=== PATIENT | male | born 1965 | race Caucasian/White ===

== ENCOUNTER 2020-02-03 14:13 | Emergency (ER) | payer BC, OTHER ==
[~2020-02-03] VITALS: Ht 188 cm; Wt 103.1 kg
--- NOTE | 2020-02-03 14:41 | NUR ---
BREAK RN: THIS IS A 54 YO M SENT FROM [place]/ C/O INTERMITTENT LT SIDED CP DESCRIBED A "ZINGER" X3-4 DAYS, WELL DULL ABD PAIN. PT REPORTS LAST BM 01/30/20. PT REPORTS MEDICAL HX PTSD, APPY AND ROTATOR CUFF SX. PT REPORTS HAS BEEN OFF XANAX X6 MONTHS. PT RESTING ON Zenefits W/ CALL LIGHT IN REACH AND SIDE RAILS UPX2, FAMILY AT BEDSIDE. SHANTA ORTIZ. TRACE RAMOS AT BEDSIDE FOR ED EVAL.
--- NOTE | 2020-02-03 14:43 | NUR ---
CXR AND ABD XR DONE AT [facility].
[2020-02-03 15:11] LABS: BASOPHILS % (AUTO) 1 % (0-1); EOSINOPHILS % (AUTO) 0 % (1-7); LYMPHOCYTES % (AUTO) 20 % (22-44); MEAN CORPUSCULAR HEMOGLOBIN 30.5 pg (27.5-34.5); MEAN CORPUSCULAR HGB CONC 34.3 g/dL (33.2-36.2); MEAN PLATELET VOLUME 7.9 fL (7.4-10.4); MONOCYTES % (AUTO) 8 % (2-9); NEUTROPHILS % (AUTO) 72 % (42-75); PLATELET COUNT 281 x10^3/uL (130-400); RED BLOOD COUNT 5.42 x10^6/uL (4.38-5.82); RED CELL DISTRIBUTION WIDTH 12.2 % (9.4-14.8)
[2020-02-03 15:16] LABS: MD NO
[2020-02-03 15:21] LABS: ALANINE AMINOTRANSFERASE 35 U/L (12-78); ALBUMIN 4.5 g/dL (3.4-5.0); ANION GAP 6 mmol/L (5-15); CALCIUM 9.4 mg/dL (8.5-10.1); CHLORIDE 105 mmol/L (98-107); CREATININE 1.12 mg/dL (0.7-1.3)
[2020-02-03 15:24] LABS: ALKALINE PHOSPHATASE 67 U/L (45-117); BILIRUBIN,TOTAL 0.9 mg/dL (0.2-1.0); TOTAL PROTEIN 7.7 g/dL (6.4-8.2); TROPONIN I < 0.015 ng/mL (0.000-0.045)
[2020-02-03 16:21] VITALS: BP 137/87
== END 2020-02-03 16:23 | disposition home or self-care (01) ==
LOC: ED 16:00
DX: S39.012A Strain of muscle, fascia and tendon of lower back, initial encounter (principal); K59.00 Constipation, unspecified; R07.89 Other chest pain; I45.10 Unspecified right bundle-branch block; I44.4 Left anterior fascicular block; I51.7 Cardiomegaly; X58.XXXA Exposure to other specified factors, initial encounter; Y93.89 Activity, other specified; Y92.89 Other specified places as the place of occurrence of the external cause; Y99.8 Other external cause status
CPT/HCPCS: 36415; 80053; 84484; 85025; 93005; 99284

== ENCOUNTER 2020-05-05 10:20 | Outpatient (CLI) | payer BC ==
[2020-05-05] MEDS ORDERED: SINCALIDE (KINEVAC) 5 MCG ONE (11:17)
[2020-05-05] MEDS ORDERED: SINCALIDE IV ONE (12:00)
[2020-05-05] MEDS ORDERED: STERILE WATER IV ONE (12:00)
== END 2020-05-05 23:59 | disposition home or self-care (01) ==
LOC: RAD 10:20
PROVIDERS: ATTEND Family Medicine
DX: K82.9 Disease of gallbladder, unspecified (principal)
CPT/HCPCS: 78227; A9537; J2805

== ENCOUNTER 2020-05-18 15:54 | Outpatient (CLI) | payer BC | END 2020-05-18 23:59 | disposition home or self-care (01) | LOC: CVU 15:54 | PROVIDERS: ATTEND Internal Medicine Cardiovascular Disease | DX: R07.89 Other chest pain (principal) | CPT/HCPCS: 93306 ==

== ENCOUNTER → 2020-05-29 | Outpatient (CLI) | payer BC ==
[~2020-05-29] MED LIST: OMNIPAQUE 350 MG/ML, 100ML BOTTLE ONE
== END | disposition home or self-care (01) ==
LOC: CFH 12:30
PROVIDERS: ATTEND Surgery
DX: R10.10 Upper abdominal pain, unspecified (principal)
CPT/HCPCS: 74177; Q9967

== ENCOUNTER → 2020-06-20 | Outpatient (CLI) | payer BC, OTHER ==
[2020-06-20 11:26] LABS: BASOPHILS % (AUTO) 1 % (0-1); EOSINOPHILS % (AUTO) 0 % (1-7); LYMPHOCYTES % (AUTO) 21 % (22-44); MEAN CORPUSCULAR HEMOGLOBIN 30.3 pg (27.5-34.5); MEAN CORPUSCULAR HGB CONC 34.2 g/dL (33.2-36.2); MEAN PLATELET VOLUME 8.1 fL (7.4-10.4); MONOCYTES % (AUTO) 6 % (2-9); NEUTROPHILS % (AUTO) 72 % (42-75); PLATELET COUNT 269 x10^3/uL (130-400); RED BLOOD COUNT 5.11 x10^6/uL (4.38-5.82); RED CELL DISTRIBUTION WIDTH 12.7 % (9.4-14.8)
[2020-06-20 11:28] LABS: ALANINE AMINOTRANSFERASE 28 U/L (12-78); ALBUMIN 4.1 g/dL (3.4-5.0); ANION GAP 5 mmol/L (5-15); CHLORIDE 106 mmol/L (98-107); CREATININE 1.05 mg/dL (0.7-1.3)
[2020-06-20 11:30] LABS: ALKALINE PHOSPHATASE 67 U/L (45-117); BILIRUBIN,TOTAL 0.6 mg/dL (0.2-1.0); TOTAL PROTEIN 7.1 g/dL (6.4-8.2)
[2020-06-20 11:42] LABS: MD NO
== END | disposition home or self-care (01) ==
LOC: RAD 09:25
DX: R51.9 Headache, unspecified (principal)
CPT/HCPCS: 36415; 70470; 80053; 85025; Q9967